=== PATIENT | male | born 2005 | race Caucasian/White ===

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

== ENCOUNTER → 2025-01-17 | Emergency (ER) | payer OTHER ==
[~2025-01-17] VITALS: Wt 82.6 kg
[~2025-01-17] MED LIST changes: +Dexamethasone Sodium Phospha 20 MG/5 ML VIAL IV ONE
== END ==
LOC: ED 16:13
DX: R09.A2 Foreign body sensation, throat (principal); F31.9 Bipolar disorder, unspecified; F90.9 Attention-deficit hyperactivity disorder, unspecified type; Z88.1 Allergy status to other antibiotic agents; Z88.8 Allergy status to other drugs, medicaments and biological substances

== ENCOUNTER 2025-05-21 17:34 | Emergency (ER) | payer OTHER ==
[~2025-05-21] VITALS: Ht 175.2 cm; Wt 84.4 kg
[~2025-05-21 17:34] MED LIST changes: -Dexamethasone Sodium Phospha 20 MG/5 ML VIAL IV ONE
[2025-05-21] MEDS ORDERED: SODIUM CHLORIDE 0.9% 1,000 ML IV ONE (17:40)
[2025-05-21 17:53] LABS: BASO # 0.0 10*3/uL (0.0-0.1); BASO % 0.4 % (0.0-1.0); EOS # 0.1 10*3/uL (0.0-0.4); EOS % 0.7 % (1.0-4.0); MEAN CELL VOLUME 88.7 fl (80.0-94.0); MEAN CORPUSCULAR HGB 29.9 pg (27.0-31.0); MEAN PLATELET VOLUME 8.8 fl (9.6-12.3); MONO # 0.7 10*3/uL (0.1-1.0); MONO % 9.5 % (3.0-9.0); NEUT # 5.1 10*3/uL (2.3-7.9); NEUT % 69.7 % (47.0-73.0); NUCLEATED RED BLOOD CELL 0.0 % (0.0-0.0); NUCLEATED RED BLOOD CELL 0.0 10*3/uL (0.0-0.0); PLATELET COUNT AUTOMATED 267 10*3/uL (130-400); RED CELL DISTRI WIDTH 12.2 % (0-14.5)
[2025-05-21 18:18] LABS: BUN 10 mg/dl (9-23); SGPT/ALT 18 U/L (5-49)
== END 2025-05-21 19:06 | disposition home or self-care (01) ==
LOC: ED 17:34
PROVIDERS: Internal Medicine
DX: R55 Syncope and collapse (principal); Z88.1 Allergy status to other antibiotic agents; Z91.040 Latex allergy status

== ENCOUNTER 2025-08-13 19:25 | Emergency (ER) | payer OTHER ==
[~2025-08-13] VITALS: Ht 175.2 cm
[2025-08-13] MEDS ORDERED: Cyclobenzaprine Hydrochlorid 10 MG TAB PO ONE (19:45)
[2025-08-13] MEDS ORDERED: Dexamethasone Sodium Phospha 20 MG/5 ML VIAL IM ONE (19:45)
[2025-08-13] MEDS ORDERED: MELOXICAM15 MG PO (20:39)
[2025-08-13] MEDS ORDERED: CYCLOBENZAPRINE5 M3 PO (20:39)
[2025-08-13] MEDS ORDERED: MEDROL DOSEPAK4 MG PO (20:39)
[2025-08-13] MEDS ORDERED: ASPERFLEX1 EACH T (20:39)
== END 2025-08-13 20:45 | disposition home or self-care (01) ==
LOC: ED 19:25
DX: M62.830 Muscle spasm of back (principal); M54.50 Low back pain, unspecified; F31.9 Bipolar disorder, unspecified; F90.9 Attention-deficit hyperactivity disorder, unspecified type; Z88.1 Allergy status to other antibiotic agents; Z88.8 Allergy status to other drugs, medicaments and biological substances

== ENCOUNTER 2025-08-17 02:57 | Emergency (ER) | payer OTHER ==
[~2025-08-17] VITALS: Ht 172.7 cm; Wt 81.6 kg
[~2025-08-17 02:57] MED LIST changes: +ASPERFLEX1 EACH T; +CYCLOBENZAPRINE5 M3 PO; +MEDROL DOSEPAK4 MG PO; +MELOXICAM15 MG PO
== END 2025-08-17 04:30 | disposition home or self-care (01) ==
LOC: ED 02:57
DX: S66.911A Strain of unspecified muscle, fascia and tendon at wrist and hand level, right hand, initial encounter (principal); S60.221A Contusion of right hand, initial encounter; Z79.899 Other long term (current) drug therapy; X58.XXXA Exposure to other specified factors, initial encounter; Y93.89 Activity, other specified; Y92.89 Other specified places as the place of occurrence of the external cause; Y99.8 Other external cause status

== ENCOUNTER 2025-09-13 17:20 | Emergency (ER) | payer OTHER ==
[~2025-09-13] VITALS: Ht 175.2 cm; Wt 79.8 kg
[2025-09-13 17:57] LABS: BASO # 0.0 10*3/uL (0.0-0.1); BASO % 0.4 % (0.0-1.0); EOS # 0.1 10*3/uL (0.0-0.4); EOS % 1.4 % (1.0-4.0); MEAN CELL VOLUME 89.6 fl (80.0-94.0); MEAN CORPUSCULAR HGB 30.1 pg (27.0-31.0); MEAN PLATELET VOLUME 8.7 fl (9.6-12.3); MONO # 0.8 10*3/uL (0.1-1.0); MONO % 9.7 % (3.0-9.0); NEUT # 5.1 10*3/uL (2.3-7.9); NEUT % 64.9 % (47.0-73.0); NUCLEATED RED BLOOD CELL 0.0 % (0.0-0.0); NUCLEATED RED BLOOD CELL 0.0 10*3/uL (0.0-0.0); PLATELET COUNT AUTOMATED 241 10*3/uL (130-400); RED CELL DISTRI WIDTH 12.1 % (0-14.5)
[2025-09-13 18:14] LABS: BUN 11 mg/dl (9-23)
[2025-09-13] MEDS ORDERED: NAPROSYN500 MG PO (18:53)
== END 2025-09-13 19:07 | disposition home or self-care (01) ==
LOC: ED 17:20
PROVIDERS: Nurse Practitioner Family
DX: M94.0 Chondrocostal junction syndrome [Tietze] (principal); F31.9 Bipolar disorder, unspecified; F20.9 Schizophrenia, unspecified; F90.9 Attention-deficit hyperactivity disorder, unspecified type; Z91.018 Allergy to other foods; Z88.1 Allergy status to other antibiotic agents

== ENCOUNTER 2025-09-29 18:07 | Emergency (ER) | payer OTHER ==
[~2025-09-29 18:07] MED LIST changes: +NAPROSYN500 MG PO
== END 2025-09-29 20:13 | disposition home or self-care (01) ==
LOC: ED 18:07
DX: S50.02XA Contusion of left elbow, initial encounter (principal); F31.9 Bipolar disorder, unspecified; F20.9 Schizophrenia, unspecified; F90.9 Attention-deficit hyperactivity disorder, unspecified type; Z91.018 Allergy to other foods; Z88.1 Allergy status to other antibiotic agents; W01.0XXA Fall on same level from slipping, tripping and stumbling without subsequent striking against object, initial encounter; Y93.89 Activity, other specified; Y92.89 Other specified places as the place of occurrence of the external cause; Y99.8 Other external cause status

== ENCOUNTER → 2025-10-15 | Outpatient (CLI) | payer OTHER ==
[2025-10-15 17:50] LABS: BASO # 0.0 10*3/uL (0.0-0.1); BASO % 0.6 % (0.0-1.0); EOS # 0.1 10*3/uL (0.0-0.4); EOS % 1.3 % (1.0-4.0); MEAN CELL VOLUME 91.7 fl (80.0-94.0); MEAN CORPUSCULAR HGB 29.9 pg (27.0-31.0); MEAN PLATELET VOLUME 9.0 fl (9.6-12.3); MONO # 0.7 10*3/uL (0.1-1.0); MONO % 10.5 % (3.0-9.0); NEUT # 4.2 10*3/uL (2.3-7.9); NEUT % 61.8 % (47.0-73.0); NUCLEATED RED BLOOD CELL 0.0 % (0.0-0.0); NUCLEATED RED BLOOD CELL 0.0 10*3/uL (0.0-0.0); PLATELET COUNT AUTOMATED 279 10*3/uL (130-400); RED CELL DISTRI WIDTH 12.5 % (0-14.5)
[2025-10-15 18:10] LABS: BUN 10 mg/dl (9-23)
== END | disposition home or self-care (01) ==
LOC: ZRHCWE 17:03
PROVIDERS: ATTEND Nurse Practitioner Family
DX: R55 Syncope and collapse (principal)